=== PATIENT | female | born 1985 | race Caucasian/White ===

== ENCOUNTER 2017-05-01 22:11 | Emergency (ER) | payer OTHER ==
[~2017-05-01] VITALS: Ht 175.3 cm; Wt 49.9 kg
[~2017-05-01 22:11] MED LIST: BUPR150T5 PO; NORE1TAB93 PO
[2017-05-02] MEDS ORDERED: ONDANSETRON ODT 4 MG TAB.RAPDIS SL ONE ×2 (00:15→01:15)
[2017-05-02] MEDS ORDERED: TDAP DIPH,PERTUSS,TET VAC/PF 0.5 ML DISP.SYRIN IM ONE ×2 (00:15→00:18)
[2017-05-02] MEDS ORDERED: AMOXICILLIN-CLAVUL 875-125MG TABLET PO ONE (00:15)
[2017-05-02] MEDS ORDERED: HYDROCODONE/APAP 5-325MG TABLET PO ONE (00:15)
[2017-05-02] MEDS ORDERED: HYDROCODONE/APAP 5-325MG TABLET ONE (00:18)
[2017-05-02] MEDS ORDERED: AMOXICILLIN-CLAVUL 875-125MG TABLET ONE (00:18)
[2017-05-02] MEDS ORDERED: ONDANSETRON ODT 4 MG TAB.RAPDIS ONE ×2 (00:21→01:19)
--- NOTE | 2017-05-02 00:23 | NUR ---
Patient refuses the abx medication at this time, she is worried it will cause stomach upset. ERMD notified.
[2017-05-02] MEDS ORDERED: HYDROMORPHONE 1 MG/1 ML DISP.SYRIN IM ONE (00:45)
[2017-05-02] MEDS ORDERED: diphenhydrAMINE 50 MG/1 ML VIAL IM ONE (00:45)
[2017-05-02] MEDS ORDERED: HYDROMORPHONE 2 MG/1 ML DISP.SYRIN ONE (01:07)
[2017-05-02] MEDS ORDERED: diphenhydrAMINE 50 MG/1 ML VIAL ONE (01:07)
--- NOTE | 2017-05-02 01:28 | NUR ---
Patient discharged to home in stable conditon. Written and verbal after care instructions given. Patient verbalizes understanding of instructions.
== END 2017-05-02 01:30 | disposition home or self-care (01) ==
LOC: ER 22:12
DX: S61.431A Puncture wound without foreign body of right hand, initial encounter (principal); W54.0XXA Bitten by dog, initial encounter; Y93.89 Activity, other specified; Y92.9 Unspecified place or not applicable; Y99.9 Unspecified external cause status
CPT/HCPCS: 73130; 90471; 90715; 96372 ×2; 99284; A4663; J1170; J1200; Q0162 ×2

== ENCOUNTER 2017-05-04 18:31 | Emergency (ER) | payer OTHER ==
[~2017-05-04] VITALS: Ht 175.3 cm; Wt 45.4 kg
[2017-05-04] MEDS ORDERED: AUGMENTIN PO (18:41)
--- NOTE | 2017-05-04 18:56 | NUR ---
PT IS IN ROOM #2B. DR OSEGUERA EVALUATED THE PT.
--- NOTE | 2017-05-04 19:14 | NUR ---
PT WAS D/C TO HOME. D/C INSTRUCTIONS GIVEN TO THE PT.
[2017-05-04 19:18] VITALS: BP 136/71
== END 2017-05-04 19:19 | disposition home or self-care (01) ==
LOC: ER 18:31
DX: S61.431D Puncture wound without foreign body of right hand, subsequent encounter (principal); W54.0XXD Bitten by dog, subsequent encounter; Y93.89 Activity, other specified; Y92.89 Other specified places as the place of occurrence of the external cause; Y99.8 Other external cause status; R11.0 Nausea
CPT/HCPCS: 29125; 99283; A4663

== ENCOUNTER 2017-07-27 10:00 | Emergency (ER) | payer MEDICAID, OTHER ==
[~2017-07-27] VITALS: Ht 175.3 cm; Wt 49.9 kg
[~2017-07-27 10:00] MED LIST changes: +AUGMENTIN PO
[2017-07-27] MEDS ORDERED: AMPH30TA3 PO (10:06)
--- NOTE | 2017-07-27 10:46 | NUR ---
Patient discharged to home in stable conditon. Written and verbal after care instructions given. Patient verbalizes understanding of instructions.
== END 2017-07-27 10:58 | disposition home or self-care (01) ==
LOC: ER 10:00
DX: F98.8 Other specified behavioral and emotional disorders with onset usually occurring in childhood and adolescence (principal)
CPT/HCPCS: 99284; A4663

== ENCOUNTER 2017-08-07 14:24 | Emergency (ER) | payer MEDICAID, OTHER ==
[~2017-08-07] VITALS: Ht 175.3 cm; Wt 49.9 kg
[~2017-08-07 14:24] MED LIST changes: +AMPH30TA3 PO; -AUGMENTIN PO; -BUPR150T5 PO; -NORE1TAB93 PO
--- NOTE | 2017-08-07 16:32 | NUR ---
Patient discharged to home in stable conditon. Written and verbal after care instructions given. Patient verbalizes understanding of instructions.
== END 2017-08-07 16:33 | disposition home or self-care (01) ==
LOC: ER 14:24
DX: Z76.0 Encounter for issue of repeat prescription (principal)
CPT/HCPCS: 99283; A4663

== ENCOUNTER 2017-11-12 11:11 | Emergency (ER) | payer SELFPAY ==
[~2017-11-12] VITALS: Ht 175.3 cm; Wt 47.6 kg
--- NOTE | 2017-11-12 11:36 | NUR ---
Patient discharged to home in stable conditon. Written and verbal after care instructions given. Patient verbalizes understanding of instructions.pt walks in steady gait.no breathing distress.
== END 2017-11-12 11:39 | disposition home or self-care (01) ==
LOC: ER 11:11
DX: R05 Cough (principal); Z79.899 Other long term (current) drug therapy
CPT/HCPCS: 99283; A4663